=== PATIENT | female | born 1940 | race Caucasian/White ===

== ENCOUNTER → 2019-03-05 | Outpatient (CLI) | payer MEDICARE, OTHER, SELFPAY ==
[2019-03-05 12:20] LABS: Absolute Lymphocyte Count 1.18 X10^3/ul (0.83-4.51); Absolute Neutrophil Count 4.8 X10^3/uL (2.0-7.7); Basophil# 0.03 X10^3/uL; Basophil% 0.5 % (0-1); Eosinophil# 0.19 X10^3/uL; Hematocrit 35.7 % (37-47); Hemoglobin 11.7 g/dl (12.0-15.0); Lymphocyte # 1.18 X10^3/ul (4.0); Lymphocyte % 18.4 % (19-41); Mean Corp Hgb Conc 32.8 g/gl (32-36); Mean Corpuscular Hgb 27.9 pg (27.0-32.0); Mean Platelet Vol. 9.6 fl (6.2-12.0); Monocyte# 0.25 X10^3/uL; Monocyte% 3.9 % (0-10); Neutrophil # 4.77 X10^3/uL (2.7-7.7); Platelet Count 200 K/mm3 (150-450); RBC Distribution Width CV 13.7 % (11.6-14.6); RBC Distribution Width SD 42.3 fl (35.1-43.9); White Blood Count 6.4 K/mm3 (4.4-11.0)
[2019-03-05 12:21] LABS: POSITIVE COUNT NO; POSITIVE DIFFERENTIAL NO; POSITIVE MORPHOLOGY NO
[2019-03-05 12:29] LABS: ALB/GLOB Ratio 1.1 RATIO (0.9-2.4); AST(SGOT) 23 U/L (15-37); Alanine Aminotransfer ALT/SGPT 22 U/L (13-56); Albumin, Serum 4.4 g/dL (3.2-5.0); Alkaline Phosphatase 68 U/L (45-117); Anion Gap 12 (5-15); BUN 23 mg/dL (7-18); BUN/Creat Ratio 12.9 RATIO (10-20); Calcium,Total 9.2 mg/dL (8.5-10.1); Chloride 104 mmol/L (98-107); Creatinine, Serum 1.78 mg/dL (0.55-1.02); EST Glomerular Filtration Rate 29 mL/min (>60); Est Glom Filt Rate - Afr Amer 36 mL/min (>60); Globulin 3.9 g/dL (2.2-4.2); Glucose 137 mg/dL (74-106); Potassium 3.6 mmol/L (3.5-5.1); Protein, Total 8.3 g/dL (6.4-8.2); Sodium Level 142 mmol/L (136-145)
== END | disposition home or self-care (01) ==
LOC: BFHLAB 10:16
PROVIDERS: Family Provider Family Medicine; PCP Family Medicine; Visit Provider Family Medicine
DX: E11.9 Type 2 diabetes mellitus without complications (principal); E78.5 Hyperlipidemia, unspecified; I10 Essential (primary) hypertension
CPT/HCPCS: 36415; 80053; 85025

== ENCOUNTER → 2020-12-09 09:43 | Outpatient (CLI) | payer MEDICARE, OTHER, SELFPAY ==
[2020-12-09 11:37] LABS: Absolute Lymphocyte Count 1.27 X10^3/uL (0.83-4.51); Absolute Neutrophil Count 5.1 X10^3/uL (2.0-7.7); Basophil# 0.04 X10^3/uL; Basophil% 0.6 % (0-1); Eosinophils% 2.8 % (0-5); Hematocrit 37.6 % (37-47); Hemoglobin 11.9 g/dL (12.0-15.0); Lymphocyte # 1.27 X10^3/ul (4.0); Lymphocyte % 17.8 % (19-41); Mean Corp Hgb Conc 31.6 g/dL (32-36); Mean Corpuscular Hgb 29.1 pg (27.0-32.0); Mean Corpuscular Volume 91.9 fL (81-99); Mean Platelet Vol. 10.3 fl (6.2-12.0); Monocyte# 0.49 X10^3/uL; Monocyte% 6.9 % (0-10); NRBC Flagged by Analyzer 0 % (0-5); Neutrophil % 71.3 % (47-70); Platelet Count 208 K/mm3 (150-450); RBC Distribution Width CV 13.3 % (11.6-14.6); RBC Distribution Width SD 44.7 fl (35.1-43.9); Red Blood Count 4.09 M/mm3 (4.2-5.4); White Blood Count 7.1 K/mm3 (4.4-11.0)
[2020-12-09 13:03] LABS: AST(SGOT) 20 U/L (15-37); Alanine Aminotransfer ALT/SGPT 21 U/L (13-56); Albumin, Serum 4.1 g/dL (3.2-5.0); Alkaline Phosphatase 60 U/L (45-117); Anion Gap 7 (5-15); BUN 23 mg/dL (7-18); BUN/Creat Ratio 12.1 RATIO (10-20); Calcium,Total 8.7 mg/dL (8.5-10.1); Chloride 103 mmol/L (98-107); Cholesterol 106 mg/dL (200); EST Glomerular Filtration Rate 27 mL/min (>60); Est Glom Filt Rate - Afr Amer 33 mL/min (>60); Glucose 117 mg/dL (74-106); High Density Lipoprotein 49 mg/dL; Potassium 3.5 mmol/L (3.5-5.1); Protein, Total 8.1 g/dL (6.4-8.2); Sodium Level 139 mmol/L (136-145); Thyroid Stim Hormone (TSH) 2.05 uIU/mL (0.358-3.74); Triglycerides 245 mg/dL; Very Low Density Lipoprotein 49 mg/dL (5-40)
== END ==
PROVIDERS: PCP Family Medicine; Visit Provider Family Medicine
DX: E11.22 Type 2 diabetes mellitus with diabetic chronic kidney disease (principal); I12.9 Hypertensive chronic kidney disease with stage 1 through stage 4 chronic kidney disease, or unspecified chronic kidney disease; N18.9 Chronic kidney disease, unspecified; E78.5 Hyperlipidemia, unspecified
CPT/HCPCS: 36415; 80053; 80061; 84443; 85025

== ENCOUNTER 2022-03-13 11:16 | Inpatient (IN) | payer MEDICARE, OTHER, SELFPAY ==
[2022-03-13] VITALS (18 sets, daily range): BP systolic 138–192; BP diastolic 61–92; PULSE 104–124; RESP 18–36; TEMP 35.3–36.9; O2SAT 90–97; BMI 29.3; BMI 25.7
--- NOTE | 2022-03-13 11:23 | CT_ITS ---
EXAM: CT HEAD WITHOUT INTRAVENOUS CONTRAST CLINICAL INDICATION: trauma TECHNIQUE: Multiple axial images were obtained of the head without intravenous contrast. This CT exam was performed using one or more of the following dose reduction techniques: automated exposure control, adjustment of the mA and/or kV according to patient size, and/or use of iterative reconstruction technique. This report was created using [employer] report generation technology. COMPARISON: None. FINDINGS: BRAIN AND EXTRA-AXIAL SPACES: Areas of diminished white matter density noted within both cerebral hemispheres suggestive of chronic microvascular change. Prominence of the cortical sulci and ventricles consistent with volume loss change. No intra- or extra-axial hemorrhage. No evidence of acute infarct. No intracranial mass or mass effect. There is preservation of the ovalle/white matter interface. Posterior fossa structures are unremarkable. Basal cisterns are patent. BONES/JOINTS: Unremarkable. No discrete lytic or blastic abnormalities. SOFT TISSUES: Prominent right-sided scalp swelling. SINUSES: Unremarkable as visualized. Clear. MASTOID AIR CELLS: Unremarkable. Clear. ORBITS: Visualized globes, extraocular muscles, optic nerves and retrobulbar fat appear unremarkable. CT/Brain/Head without Contrast IMPRESSION: 1. No acute intracranial abnormality. 2. Chronic senescent changes. 3. Prominent right sided scalp swelling. Electronically Signed: Armond Overton MD at 12:36 EDT ,
--- NOTE | 2022-03-13 11:23 | CT_ITS ---
EXAM: CT CHEST, ABDOMEN AND PELVIS WITHOUT INTRAVENOUS CONTRAST CLINICAL INDICATION: trauma . TECHNIQUE: Helically acquired images were obtained of the chest, abdomen and pelvis without intravenous contrast. This CT exam was performed using one or more of the following dose reduction techniques: automated exposure control, adjustment of the mA and/or kV according to patient size, and/or use of iterative reconstruction technique. This report was created using [employer] report generation technology. COMPARISON: None. FINDINGS: CHEST: LUNGS AND PLEURAL SPACES: Small bilateral pleural effusions and mild bibasilar atelectasis. No mass. No pneumothorax. HEART: Heart is mildly moderately enlarged. Minimal pericardial effusion. No significant coronary artery calcifications. MEDIASTINUM: Unremarkable. No mediastinal or hilar adenopathy. Esophagus is unremarkable. No hiatal hernia. THYROID: Unremarkable. No thyroid lesions. ABDOMEN: LIVER: Unremarkable. Homogeneous. GALLBLADDER AND BILE DUCTS: Large calcified stones are present within the gallbladder. No gallbladder distention or wall edema. PANCREAS: Unremarkable. No focal cystic mass. SPLEEN: Unremarkable. Normal size without focal cystic or solid mass. ADRENALS: Unremarkable. No nodules. KIDNEYS AND URETERS: Unremarkable. Normal renal size and position. No hydronephrosis. STOMACH AND BOWEL: Diverticulosis of the colon noted without evidence of acute diverticulitis. No stomach or bowel distention. PELVIS: APPENDIX: Appendix is visualized and normal in appearance. BLADDER: Monroy catheter in place within a decompressed urinary bladder. REPRODUCTIVE: Multiple small calcified uterine fibroids. CHEST, ABDOMEN and PELVIS: INTRAPERITONEAL SPACE: No evidence of hemoperitoneum. No free air. BONES/JOINTS: Unremarkable. No suspicious lytic or blastic abnormality. SOFT TISSUES: Unremarkable. No discrete abdominal or pelvic wall hernia. VASCULATURE: Unremarkable. Aorta is non-dilated. LYMPH NODES: Unremarkable. No enlarged lymph nodes. CT/CT Chest, Abd, Pelvis WO Cont IMPRESSION: 1. No evidence of acute intrathoracic or intra-abdominal injury. 2. Cardiomegaly. 3. Small bilateral pleural effusions and mild bibasilar atelectasis. 4. Cholelithiasis. 5. Diverticulosis coli. Electronically Signed: Armond Overton MD at 12:45 EDT Reading Location ID and State: [facility] / [place] Tel , Service support ,
--- NOTE | 2022-03-13 11:23 | CT_ITS ---
EXAM: CT CERVICAL SPINE WITHOUT INTRAVENOUS CONTRAST CLINICAL INDICATION: trauma TECHNIQUE: Helically acquired images were obtained of the cervical spine without intravenous contrast. 2D reformatted images were reviewed. This CT exam was performed using one or more of the following dose reduction techniques: automated exposure control, adjustment of the mA and/or kV according to patient size, and/or use of iterative reconstruction technique. This report was created using [employer] report generation technology. COMPARISON: None. FINDINGS: VERTEBRAE: Moderate diffuse spondylosis. No fracture. No traumatic subluxation. No discrete lytic or blastic abnormality. Normal alignment. Normal craniocervical junction and cervicothoracic junction. DISCS/SPINAL CANAL/NEURAL FORAMINA: Broad-based disc protrusion at C5-6 level without significant narrowing of the spinal canal. SOFT TISSUES: Unremarkable. No prevertebral soft tissue swelling. LYMPH NODES: Unremarkable. No cervical adenopathy. LUNG APICES: Unremarkable as visualized. Clear. CT/Spine Cervical without Contras IMPRESSION: 1. No acute abnormality. 2. Diffuse spondylosis. Electronically Signed: Armond Overton MD at 12:47 EDT ,
--- NOTE | 2022-03-13 11:24 | EKG12_ITS ---
Test Reason : TRAUMA\FALL Blood Pressure : / mmHG Vent. Rate : 117 BPM Atrial Rate : 117 BPM P-R Int : 190 ms QRS Dur : 086 ms QT Int : 314 ms P-R-T Axes : 044 -15 106 degrees QTc Int : 438 ms Sinus tachycardia with occasional Premature ventricular complexes T wave abnormality, consider lateral ischemia Abnormal ECG Confirmed by RC NELSON, JOEY ([id number]), photographic editor DAVE KENNEDY ([id number]) on 03/14/2022 1:17:19 PM Referred By: MOO Confirmed By:JOEY TATUM MD
--- NOTE | 2022-03-13 11:29 | EDS_ITS ---
HPI HPI - Fall History of Present Illness Chief Complaint: Trauma Detail of Chief Complaint: Fell down a flight of steps. Informant: patient, family and EMS Occured/Mechanism Occurred: Days Fall from Height (ft): Fell down 1 flight of steps Usually ambulates: Without assistance Pain/Injury Pain Location: head, chest, abdomen, pelvis and back Quality of Pain: Sharp Current Severity: Moderate Maximum Severity: Moderate Associated Symptoms Associated Symptoms: Positive for Inability to ambulate; Negative for Parasthesias, Weakness, Loss of consciousness and Amnesia Narrative Narrative: 81-year-old female history of a prior stroke on Plavix with right- sided weakness. Also history of renal insufficiency and [id number] diabetes. Son says he was at her house around 5:00 on Monday she was doing well. Sometime Monday evening she lost her balance and fell backwards down steps into her basement and got wedged into an area of the door. She has been laying there now the last 2 days. Neighbors had not seen her found her and called paramedics could break the door in order to get her out. Prior similar symptoms: No Recent Illness/Hospitalization: No PFSH PFSH Home Medications atorvastatin 20 mg PO QHS 03/13/22 [History Last Taken Unknown] clopidogrel 75 mg PO DAILY 03/13/22 [History Last Taken Unknown] diazepam 5 mg PO TID 03/13/22 [History Last Taken Unknown] metformin 500 mg PO DAILY 03/13/22 [History Last Taken Unknown] metoprolol succinate 100 mg PO BID 03/13/22 [History Last Taken Unknown] nifedipine 60 mg PO DAILY 03/13/22 [History Last Taken Unknown] Allergy/AdvReac Type Severity Reaction Status Date / Time Penicillins AdvReac PT UNSURE Verified 03/13/22 11:42 OF REACTION Social History Smoking Status: Former smoker ROS ROS ED ROS Narrative Denies recent illness. Review of Systems ROS Unobtainable: Denies due to encephalopathy Constitutional Constitutional ED: Denies fever(s) Eyes Eyes: Denies change in vision ENT ENT ED: Denies ear pain Cardiovascular Cardiovascular: Denies chest pain Respiratory/Chest Respiratory/Chest: Denies cough or dyspnea Gastrointestinal Gastrointestinal: Denies abdominal pain, diarrhea, nausea or vomiting Genitourinary Genitourinary ED: Denies dysuria Musculoskeletal Musculoskeletal: Denies myalgias Integumentary Denies rash Neurologic Neurologic: Denies headache(s) Psychiatric Psychiatric: Denies depression Endocrine Endocrinology: Denies polyuria Hematologic/Lymphatic Hematologic/Lymphatic: Denies easy bruising Allergic/Immunologic Allergic/Immunologic ED: Denies urticaria EXAM Physical Exam Narrative Exam Narrative: Elderly female brought in by paramedics backboard and c-collar. Her initial blood pressure is 171/87. Temperature on the forehead is 96.3. Pulse ox is 97% on 2 L no hypoxia. H EENT exam pupils round reactive light. Dentition intact. No facial tenderness. Scalp no areas of tenderness or lacerations. C-collar in place. Trachea midline. Lungs shallow breath sounds bilaterally. Reproducible pain over the chest wall. Heart tachycardic rate about 120 no murmur. Abdomen soft nontender. Pelvic girdle intact. She has abrasions and bruises over multiple areas of her extremities. Including her right shoulder. Neurologically she is awake. She does answer questions. She follows limited commands. She is weaker on the right side than the left she states that is from a prior stroke. Const Vital Signs: 03/13/22 11:17 03/13/22 11:22 03/13/22 11:37 Temperature 96.3 F L 96.3 F L Temperature Source Temporal Temporal Pulse Rate 119 H 116 H Respiratory Rate 23 H 29 H Respiratory Effort Respiratory Depth Respiratory Pattern Blood Pressure 171/87 H 171/87 H Blood Pressure Mean 115 115 Pulse Ox 97 97 Oxygen Delivery Method Nasal Cannula Nasal Cannula Nasal Cannula Oxygen Flow Rate (L/min) 2 4 03/13/22 11:43 03/13/22 12:00 03/13/22 12:30 Temperature 95.5 F L 98.1 F 98.1 F Temperature Source Core Core Pulse Rate 104 H 106 H Respiratory Rate 21 H 21 H Respiratory Effort Normal Non-Labored Respiratory Depth Normal Respiratory Pattern Normal Blood Pressure 161/74 H 165/74 H Blood Pressure Mean 103 104 Pulse Ox 93 95 95 Oxygen Delivery Method Nasal Cannula Nasal Cannula Nasal Cannula Oxygen Flow Rate (L/min) 4 4 4 Positive well nourished and well developed; Negative for cachectic, contractures or unkempt General Appearance ED: well developed; Negative for unkempt, cachectic, contractures or NAD Nutritional Appearance: Negative for cachectic HEENT Reports normocephalic Eyes PERRL and EOMs intact bilaterally Neck No full ROM, no lymphadenopathy and supple General: Negative for tenderness Chest Wall Negative for inspection of chest normal or palpation of chest normal Chest Narrative: Tenderness of the chest wall more so on the right ribs. Resp normal respiratory effort, no retractions and clear to auscultation bilaterally Resp Narrative: Shallow breathing. Auscultation: Negative for rales, rhonchi or wheezes Cardio regular rhythm, S1 normal heart sound, S2 normal heart sound and no murmurs; Negative for regular rate Rate: tachycardic GI non-tender, non-distended and no masses Auscultation: normoactive bowel sounds Palpation: soft; Negative for guarding Extremity Negative for normal to inspection or full ROM Extremity Narrative: Tenderness and bruising right shoulder. Limited range of motion both upper and lower extremities. Multiple abrasions and contusions. Neuro Courtney Coma Scale: document GCS findings To Voice Obeys Commands Confused 13 Sensorium / Orientation: alert, oriented to person and oriented to place Motor Exam: Negative for strength 5/5 throughout Psych mental status grossly normal and thought process normal Appearance: Negative for unkempt Skin Lesions: no lesions and No lesion noted Rashes: no rashes and No rashes noted Trauma: abrasion MDM MDM MDM Narrative Medical decision making narrative: 81-year-old female on Plavix reportedly fell backwards down a flight of steps at her home on Monday night and is laid there now for the last 2 days. She was found today by a neighbor and brought in by paramedics. Backboard and c-collar. CAT scan of her head neck chest abdomen pelvis to be obtained. I am obtaining a chest x-ray initially to see if she has a pneumothorax. She be given a liter of fluid and 2 IVs to be placed. Along with a Monroy catheter. Numerous labs will be obtained. She will be treated with fentanyl and Zofran. Multiple repeat exams patient is doing well. She was initially treated with fentanyl and Zofran. Said her pain is under control. Back exam she has abrasion and contusion to her posterior right shoulder and right buttock area. She can move her extremities. She has no deformities. Amazingly her CAT scan and plain films do not show any broken bones. I am going to speak to the hospitalist about admission for rhabdomyolysis, dehydration, acute kidney injury. Lab Data Attestation: I reviewed the patient's lab results. Lab results narrative: CBC shows an elevated white count of 27.7. H&H 15 and 44. Platelets 320. 90% segmented neutrophils. Electrolytes show a sodium 134 and a gap of 13 BUN of 49 and creatinine 2.84 consistent with acute kidney injury. Glucose 249. Liver enzymes are unremarkable. Her CPK is elevated 2463 consistent with rhabdomyolysis. Lipase is normal at 72. UA negative. 5-10 white cells will be sent for culture. PT, INR and PTT are unremarkable. Labs: Laboratory Results - last 24 hr 03/13/22 03/13/22 03/13/22 11:25 11:25 11:38 WBC 27.7 H RBC 5.03 Hgb 15.4 H Hct 44.5 MCV 88.5 MCH 30.6 MCHC 34.6 RDW Std Deviation 43.2 RDW Coeff of Sarath 13.3 Plt Count 320 MPV 10.5 Immature Gran % (Auto) 0.800 Neut % (Auto) 90.0 H Lymph % (Auto) 3.0 L Marinette % (Auto) 6.0 Eos % (Auto) 0.0 Baso % (Auto) 0.2 Absolute Neuts (auto) 25.0 H Absolute Lymphs (auto) 0.82 L Nucleated RBC % 0 Differential Comment SCANNED Diff Path Review May foll PT INR APTT Sodium 134 L Potassium 3.6 Chloride 103 Carbon Dioxide 18.0 L Anion Gap 13 BUN 49 H Creatinine 2.84 H Estim Creat Clear Calc 13.07 Est GFR (MDRD) Af Amer 21 L Est GFR (MDRD) Non-Af 17 L BUN/Creatinine Ratio 17.3 Glucose 249 H Calcium 9.0 Total Bilirubin 0.40 AST 112 H ALT 47 Alkaline Phosphatase 86 Total Creatine Kinase 2463 H Troponin I High Sens 111 H Total Protein 8.0 Albumin 3.4 Globulin 4.6 H Albumin/Globulin Ratio 0.7 L Lipase 72 L Urine Color Urine Clarity Urine pH Ur Specific [place] Urine Protein Urine Glucose (UA) Urine Ketones Urine Occult Blood Urine Nitrite Urine Bilirubin Urine Urobilinogen Ur Leukocyte Esterase Urine RBC Urine WBC Ur Squamous Epith Cells Urine Bacteria Hyaline Casts Fine Granular Casts Urine Mucus POC Glucose 266 H 03/13/22 03/13/22 11:42 12:45 WBC RBC Hgb Hct MCV MCH MCHC RDW Std Deviation RDW Coeff of Sarath Plt Count MPV Immature Gran % (Auto) Neut % (Auto) Lymph % (Auto) Marinette % (Auto) Eos % (Auto) Baso % (Auto) Absolute Neuts (auto) Absolute Lymphs (auto) Nucleated RBC % Differential Comment Diff Path Review PT 17.7 H INR 1.5 APTT 35.1 Sodium Potassium Chloride Carbon Dioxide Anion Gap BUN Creatinine Estim Creat Clear Calc Est GFR (MDRD) Af Amer Est GFR (MDRD) Non-Af BUN/Creatinine Ratio Glucose Calcium Total Bilirubin AST ALT Alkaline Phosphatase Total Creatine Kinase Troponin I High Sens Total Protein Albumin Globulin Albumin/Globulin Ratio Lipase Urine Color Yellow Urine Clarity Sl. Cloudy Urine pH 6.0 Ur Specific [place] 1.015 Urine Protein 500 H Urine Glucose (UA) 50 H Urine Ketones 5 H Urine Occult Blood 250 H Urine Nitrite Negative Urine Bilirubin Negative Urine Urobilinogen Normal Ur Leukocyte Esterase 25 H Urine RBC 0 SEEN Urine WBC 5-10 SEEN Ur Squamous Epith Cells 0 SEEN Urine Bacteria 1+ Hyaline Casts 0-5 SEEN Fine Granular Casts 0-5 SEEN Urine Mucus 0 SEEN POC Glucose Radiography Diagnostic Testing: Clinical Impression(s) from Imaging Studies Brain CT 03/13/22 11:23 IMPRESSION: 1. No acute intracranial abnormality. 2. Chronic senescent changes. 3. Prominent right sided scalp swelling. Electronically Signed: Armond Overton MD at 12:36 EDT , Cervical Spine CT 03/13/22 11:23 IMPRESSION: 1. No acute abnormality. 2. Diffuse spondylosis. Electronically Signed: Armond Overton MD at 12:47 EDT , Chest/Abdomen/Pelvis CT 03/13/22 11:23 IMPRESSION: 1. No evidence of acute intrathoracic or intra-abdominal injury. 2. Cardiomegaly. 3. Small bilateral pleural effusions and mild bibasilar atelectasis. 4. Cholelithiasis. 5. Diverticulosis coli. Electronically Signed: Armond Overton MD at 12:45 EDT , Chest X-Ray 03/13/22 11:33 IMPRESSION: No acute cardiopulmonary abnormality. Electronically Signed: Armond Overton MD at 11:58 EDT , Pelvis X-Ray 03/13/22 11:33 IMPRESSION: No acute abnormality. Electronically Signed: Armond Overton MD at 11:57 EDT , Pelvis x-ray single view interpreted myself and radiologist shows no acute fracture. Chronic changes. Chest x-ray single view, portable, interpreted by myself and radiologist shows no acute abnormality. Chronic changes. CAT scans of the head, neck, chest abdomen and pelvis showed chronic changes no acute abnormality. Read by the radiologist and reviewed by me. Rhythm Strip Rhythm Strip: Sinus Tach Rate: 117 Ectopy: PVC(s) EKG Initial EKG: Attestation: I personally reviewed and interpreted this EKG as follows: Interpretation: No Acute Injury Pattern and Sinus Tachycardia Comments: Sinus tachycardia rate Lycelle pain. HPI menses. There is ST depression in the lateral leads to the 6. Critical Care Time Critical Care Time: Yes Critical care time (excluding procedures): 30-74 minutes, Including time spent:, Discussing w/Patient &/or Family/Home Improvement Installer, Discussing w/Consultants, Arranging Admission or Transfer, Performing Direct Patient Care at Bedside and - (33 min.) Discharge Plan Triage Chief Complaint: Trauma ED Provider: Phil Mora Dx/Rx/DC Orders Clinical Impression: Fall down steps, Rhabdomyolysis, Acute kidney injury, Unable to ambulate, Contusion, Pressure ulcer Prescriptions: No Action metformin 500 mg tablet 500 mg PO DAILY RF: 0 atorvastatin 20 mg tablet 20 mg PO QHS RF: 0 metoprolol succinate 100 mg tablet extended release 24 hr 100 mg PO BID RF: 0 clopidogrel 75 mg tablet 75 mg PO DAILY RF: 0 nifedipine 60 mg tablet extended release 24hr 60 mg PO DAILY RF: 0 diazepam 5 mg tablet 5 mg PO TID RF: 0 Primary Care Provider: Domo Causey Referrals: Domo Causey MD [Primary Care Provider] -
[2022-03-13] MEDS: fentaNYL 100 MCG/2 ML Ampul 50 MCG IV (11:33)
[2022-03-13] MEDS: Ondansetron 4 MG/2 ML Vial IV (11:33)
--- NOTE | 2022-03-13 11:33 | RAD_ITS ---
EXAM: XR PELVIS, 1 OR 2 VIEWS CLINICAL INDICATION: trauma TECHNIQUE: Frontal view of the pelvis. This report was created using [employer] report generation technology. COMPARISON: None. FINDINGS: BONES/JOINTS: Unremarkable. No displaced fracture. No destructive or sclerotic lesions. Sacroiliac joints are unremarkable. No widening of the pubic symphysis. The articular structures are unremarkable. SOFT TISSUES: Unremarkable. No soft tissue swelling or gas. RAD/Pelvis 1 or 2 Views IMPRESSION: No acute abnormality. Electronically Signed: Armond Overton MD at 11:57 EDT ,
--- NOTE | 2022-03-13 11:33 | RAD_ITS ---
EXAM: XR CHEST, 1 VIEW CLINICAL INDICATION: trauma TECHNIQUE: Frontal view of the chest. This report was created using [employer] report generation technology. COMPARISON: None. FINDINGS: LUNGS AND PLEURAL SPACES: Unremarkable. No consolidation or edema. No pneumothorax. No effusion. HEART: Unremarkable. Cardiac silhouette not enlarged. MEDIASTINUM: Central airways and mediastinal contour are unremarkable. BONES/JOINTS: Unremarkable. SOFT TISSUES: Unremarkable. RAD/Chest 1 View (Portable) IMPRESSION: No acute cardiopulmonary abnormality. Electronically Signed: Armond Overton MD at 11:58 EDT ,
[2022-03-13] MEDS: 0.9% Normal Saline 1,000 ML 1000 ML IV (11:36)
[2022-03-13 11:40] LABS: Absolute Lymphocyte Count 0.82 X10^3/uL (0.83-4.51); Basophil# 0.06 X10^3/uL; Basophil% 0.2 % (0-1); Hematocrit 44.5 % (37-47); Hemoglobin 15.4 g/dL (12.0-15.0); Lymphocyte # 0.82 X10^3/ul (0.83-4.51); Mean Corp Hgb Conc 34.6 g/dL (32-36); Mean Corpuscular Hgb 30.6 pg (27.0-32.0); Mean Corpuscular Volume 88.5 fL (81-99); Mean Platelet Vol. 10.5 fl (6.2-12.0); Monocyte# 1.66 X10^3/uL; NRBC Flagged by Analyzer 0 % (0-5); Neutrophil # 24.95 X10^3/uL (2.7-7.7); POSITIVE DIFFERENTIAL YES; Platelet Count 320 K/mm3 (150-450); RBC Distribution Width CV 13.3 % (11.6-14.6); RBC Distribution Width SD 43.2 fl (35.1-43.9); Red Blood Count 5.03 M/mm3 (4.2-5.4); White Blood Count 27.7 K/mm3 (4.4-11.0)
--- NOTE | 2022-03-13 11:45 | NURSING ---
Pt complains of all over pain, temporal temp 96.3, core body temperature via barrera on arrival 95.5, patient bedding changed as patient had saturated self with urine. Warm blankets applied, core temperature elevates to 98.1 Trauma assessment notes the following: Scalp swelling and pressure sore noted to right sided parietal region, abrasion to right posterior shoulder blade region, stage 3 pressure ulcer to coccyx, r lateral ankle abrasion, skin tear and bruising to right hand.
[2022-03-13 11:47] LABS: Differential Indicated SCAN CRITERIA MET
[2022-03-13 11:49] LABS: Red Blood Cells-Urine 0 SEEN /hpf (0-5)
[2022-03-13 11:50] LABS: Mucous, Urine 0 SEEN /hpf (<or=2+); Squamous Epithelial Cells - UA 0 SEEN /hpf (5-10)
[2022-03-13 11:51] LABS: Color, Urine Yellow (Yellow); Glucose, Dipstick 50 mg/dl (Normal); Ketone-Dipstick 5 mg/dl (Negative); Leukocyte Esterase-Dipstick 25 /ul (Negative); Nitrite-Dipstick Negative (Negative); Occult Blood-Urine 250 /ul (Negative); Protein-Dipstick 500 mg/dl (Negative); Specific Gravity, Urine 1.015 (1.002-1.030); Urine Bilirubin Dipstick Negative (Negative); Urine Clarity Sl. Cloudy (Clear); Urine Urobilinogen Normal (Normal)
[2022-03-13 12:03] LABS: Bacteria 1+ /hpf (None Seen); Hyaline Cast 0-5 SEEN /lpf (0-5); White Blood Cells 5-10 SEEN /hpf (0-5)
[2022-03-13 12:04] LABS: Fine Granular Cast- Urine 0-5 SEEN /lpf (0-5)
[2022-03-13 12:18] LABS: Differential Comment SCANNED
[2022-03-13 12:31] LABS: ALB/GLOB Ratio 0.7 RATIO (0.9-2.4); AST(SGOT) 112 U/L (15-37); Alanine Aminotransfer ALT/SGPT 47 U/L (13-56); Albumin, Serum 3.4 g/dL (3.2-5.0); Alkaline Phosphatase 86 U/L (45-117); Anion Gap 13 (5-15); BUN 49 mg/dL (7-18); BUN/Creat Ratio 17.3 RATIO (10-20); CPK Total, Creatine Kinase 2463 U/L (26-192); Chloride 103 mmol/L (98-107); Creatinine, Serum 2.84 mg/dL (0.55-1.02); EST Glomerular Filtration Rate 17 mL/min (>60); Est Glom Filt Rate - Afr Amer 21 mL/min (>60); Estimated Creatinine Clearance 13.07 ml/min; Globulin 4.6 g/dL (2.2-4.2); Glucose 249 mg/dL (74-106); Lipase 72 U/L (73-393); Potassium 3.6 mmol/L (3.5-5.1); Sodium Level 134 mmol/L (136-145); Troponin-I HS 111 pg/mL (3.0-54.0)
[2022-03-13 13:03] LABS: International Normalized Ratio 1.5; Prothrombin Time (Protime)PT. 17.7 SECONDS (11.7-14.9)
[2022-03-13 13:04] LABS: Partial Thromboplast Time 35.1 Seconds (24.1-36.2)
[2022-03-13 13:06] LABS: Bedside Glucose 266 mg/dL (74-106)
--- NOTE | 2022-03-13 13:42 | HP.PCM.HOS_ITS ---
HPI - General HPI Narrative ELIZA LUNA, is a 81 F who presents after being found down a flight of stairs. Patient had fallen this past Monday but has not been seen since then. Patient was then found at the bottom of her stairs. Patient had fallen down her stairs but did not know the details of the fall and injury but was unable to get herself up. She was brought into the emergency room where she went extensive imaging including x-rays of her pelvis, chest which were unremarkable, CAT scan imaging of her chest abdomen pelvis, head CT and cervical spine CT which were also unremarkable. Patient was found to have rhabdomyolysis with total creatinine kinase of 2463. Patient did receive IV fluids in the emergency room. The hospital service was contacted for admission regards to medical treatment. [facility] Medical History (Updated 03/13/22 @ 13:[address] Supa White DO) Benign hypertension history of ischemic stroke Hyperlipidemia Obesity Type 2 diabetes mellitus Home Medications atorvastatin 20 mg PO QHS 03/13/22 [History Last Taken Unknown] clopidogrel 75 mg PO DAILY 03/13/22 [History Last Taken Unknown] diazepam 5 mg PO TID 03/13/22 [History Last Taken Unknown] metformin 500 mg PO DAILY 03/13/22 [History Last Taken Unknown] metoprolol succinate 100 mg PO BID 03/13/22 [History Last Taken Unknown] nifedipine 60 mg PO DAILY 03/13/22 [History Last Taken Unknown] Allergy/AdvReac Type Severity Reaction Status Date / Time Penicillins AdvReac PT UNSURE Verified 03/13/22 11:42 OF REACTION Social History Smoking Status: Former smoker ROS ROS Narrative Hurts all over. All review of systems were negative except as mentioned above in the history of present illness and the other review of systems. Vital Signs Vital Signs Vital Signs: 03/13/22 11:17 03/13/22 11:22 03/13/22 11:37 Temperature 35.7 C L 35.7 C L Temperature Source Temporal Temporal Pulse Rate 119 H 116 H Respiratory Rate 23 H 29 H Respiratory Effort Respiratory Depth Respiratory Pattern Blood Pressure 171/87 H 171/87 H Blood Pressure Mean 115 115 Pulse Ox 97 97 Oxygen Delivery Method Nasal Cannula Nasal Cannula Nasal Cannula Oxygen Flow Rate (L/min) 2 4 03/13/22 11:43 03/13/22 12:00 03/13/22 12:30 Temperature 35.3 C L 36.7 C 36.7 C Temperature Source Core Core Pulse Rate 104 H 106 H Respiratory Rate 21 H 21 H Respiratory Effort Normal Non-Labored Respiratory Depth Normal Respiratory Pattern Normal Blood Pressure 161/74 H 165/74 H Blood Pressure Mean 103 104 Pulse Ox 93 95 95 Oxygen Delivery Method Nasal Cannula Nasal Cannula Nasal Cannula Oxygen Flow Rate (L/min) 4 4 4 03/13/22 13:00 03/13/22 13:29 Temperature 36.7 C 36.7 C Temperature Source Core Core Pulse Rate 107 H 111 H Respiratory Rate 36 H 30 H Respiratory Effort Respiratory Depth Respiratory Pattern Blood Pressure 190/86 H 188/80 H Blood Pressure Mean 120 116 Pulse Ox 96 96 Oxygen Delivery Method Nasal Cannula Nasal Cannula Oxygen Flow Rate (L/min) 4 4 Weight Weight: 75.1 kg Body Mass Index (BMI) 29.3 Physical Exam Const alert, no apparent distress and average body habitus General Appearance: cooperative HEENT normocephalic, hearing grossly normal bilaterally and moist oral mucous membranes HEENT Narrative: Bruising on her scalp. Mucous membranes dry. Eyes PERRL Resp normal respiratory effort, no retractions, no use of accessory muscles and clear to auscultation bilaterally Cardio regular rate, regular rhythm, S1 normal heart sound and S2 normal heart sound GI normal to inspection, nondistended, normoactive bowel sounds, soft to palpation, non-tender and non-distended Extremity full ROM Extremity Narrative: Bruising and ecchymosis on right anterior shoulder Skin Skin Narrative: Skin abrasion on right anterior shoulder as well as on the shins. Neuro moves all extremities Sensorium / Orientation: awake and alert Psych Psych Narrative: Flat affect Results Lab / Micro Data Attestation: I reviewed the patient's lab results. Result Diagrams: 03/13/22 11:25 03/13/22 11:25 Labs: Laboratory Results - last 24 hr 03/13/22 11:25: WBC 27.7 H, RBC 5.03, Hgb 15.4 H, Hct 44.5, MCV 88.5, MCH 30.6, MCHC 34.6, RDW Std Deviation 43.2, RDW Coeff of Sarath 13.3, Plt Count 320, MPV 10.5, Immature Gran % (Auto) 0.800, Neut % (Auto) 90.0 H, Lymph % (Auto) 3.0 L, [place] % (Auto) 6.0, Eos % (Auto) 0.0, Baso % (Auto) 0.2, Absolute Neuts (auto) 2 5.0 H, Absolute Lymphs (auto) 0.82 L, Nucleated RBC % 0, Differential Comment SCANNED, Diff Path Review March foll 03/13/22 11:25: Sodium 134 L, Potassium 3.6, Chloride 103, Carbon Dioxide 18.0 L , Anion Gap 13, BUN 49 H, Creatinine 2.84 H, Estim Creat Clear Calc 13.07, Est GFR (MDRD) Af Amer 21 L, Est GFR (MDRD) Non-Af 17 L, BUN/Creatinine Ratio 17.3, Glucose 249 H, Calcium 9.0, Total Bilirubin 0.40, AST 112 H, ALT 47, Alkaline Phosphatase 86, Total Creatine Kinase 2463 H, Troponin I High Sens 111 H, Total Protein 8.0, Albumin 3.4, Globulin 4.6 H, Albumin/Globulin Ratio 0.7 L, Lipase 72 L 03/13/22 11:38: POC Glucose 266 H 03/13/22 11:42: Urine Color Yellow, Urine Clarity Sl. Cloudy, Urine pH 6.0, Ur Specific [place] 1.015, Urine Protein 500 H, Urine Glucose (UA) 50 H, Urine Ketones 5 H, Urine Occult Blood 250 H, Urine Nitrite Negative, Urine Bilirubin Negative, Urine Urobilinogen Normal, Ur Leukocyte Esterase 25 H, Urine RBC 0 SEEN, Urine WBC 5-10 SEEN, Ur Squamous Epith Cells 0 SEEN, Urine Bacteria 1+, Hyaline Casts 0-5 SEEN, Fine Granular Casts 0-5 SEEN, Urine Mucus 0 SEEN 03/13/22 12:45: PT 17.7 H, INR 1.5, APTT 35.1 Rhythm Strip Rhythm Strip: Sinus Tach Rate: 117 Ectopy: PVC(s) EKG Initial EKG: Attestation: I personally reviewed and interpreted this EKG as follows: Prior EKG tracings: available for review EKG Rhythm Intrepretation: Sinus Rhythm Radiology Impression Brain CT 03/13/22 11:23 IMPRESSION: 1. No acute intracranial abnormality. 2. Chronic senescent changes. 3. Prominent right sided scalp swelling. Electronically Signed: Armond Overton MD at 12:36 EDT , Cervical Spine CT 03/13/22 11:23 IMPRESSION: 1. No acute abnormality. 2. Diffuse spondylosis. Electronically Signed: Armond Overton MD at 12:47 EDT , Chest/Abdomen/Pelvis CT 03/13/22 11:23 IMPRESSION: 1. No evidence of acute intrathoracic or intra-abdominal injury. 2. Cardiomegaly. 3. Small bilateral pleural effusions and mild bibasilar atelectasis. 4. Cholelithiasis. 5. Diverticulosis coli. Electronically Signed: Armond Overton MD at 12:45 EDT Reading Location ID and State: [id number] Tel , Service support , Chest X-Ray 03/13/22 11:33 IMPRESSION: No acute cardiopulmonary abnormality. Electronically Signed: Armond Overton MD at 11:58 EDT , Pelvis X-Ray 03/13/22 11:33 IMPRESSION: No acute abnormality. Electronically Signed: Armond Overton MD at 11:57 EDT , Assessment & Plan Assessment/Plan (1) Rhabdomyolysis: QUALIFIERS: Rhabdomyolysis type: traumatic Encounter type: initial encounter Qualified Code(s): T79.6XXA - Traumatic ischemia of muscle, initial encounter (2) Acute kidney injury: (3) Debility: PLAN: 1. Rhabdomyolysis * Traumatic * CPK was noted to be 2463 * Continue with IV fluids * Check CPK in the morning 2. Acute kidney injury * Baseline around 1.9, today it is 2.8 * IV fluids and monitor 3. Debility * PT OT evaluate and treat * Anticipate patient will require [facility]p facility upon discharge 4. Diabetes mellitus type 2 * Hold metformin * Sliding scale insulin 5. VTE prophylaxis with SCDs. Given the patient's scalp hematomas would hold off on her clopidogrel for now. 6. History of stroke * On clopidogrel at baseline. Currently being held because of her scalp hematomas. As those resolved and clopidogrel could be resumed. 7. CODE STATUS: Addressed with the patient. Patient wishes to be DNR Comfort Care arrest no intubation 8. COVID-19 vaccination status: Patient is unvaccinated. She has not not received the booster. Advised patient get vaccinated and that she could be administered the first of the second dose of the monthly regimen. 9. Chronic benzodiazepine use * Reviewed OARRS. Patient received diazepam 5 mg 3 times daily, last dosing was on the where he received 90 at that time. * Given the patient's advanced age and frailty, I recommend weaning that off. Would start her on diazepam 5 mg twice daily for now but that could be further weaned down as she is able to tolerate. Charges/Coding Visit Charges Inpatient E&M: 64097 Init Hosp L3
--- NOTE | 2022-03-13 14:25 | NURSING ---
Patient noted to have oxygen desaturation to 84% on 2lpm, increased oxygen back to 4lpm and rebounded to 97%. Awakens easily.
[2022-03-13] MEDS: Metoprolol(XL)Succ 100 MG Tablet PO ×2 (15:48→21:43)
[2022-03-13] MEDS: NIFEdipine 60 MG Tablet PO (15:49)
[2022-03-13] MEDS: 0.9% Normal Saline 1,000 ML 150 ML IV ×2 (15:52→20:00)
[2022-03-13 16:16] LABS: Bedside Glucose 233 mg/dL (74-106)
[2022-03-13] MEDS: Insulin Lispro 100 UNIT/ML INSULN.PEN SC (16:23)
[2022-03-13] MEDS: diazePAM 5 MG Tablet PO (21:43)
[2022-03-14] MEDS: 0.9% Normal Saline 1,000 ML 150 ML IV (02:45)
--- NOTE | 2022-03-14 02:59 | NURSING ---
Pt pulseless, apneic, no pupil response. Verified with Shanelle FORRESTER.
--- NOTE | 2022-03-14 03:09 | EXP.PCM_ITS ---
Preliminary Cause of Preliminary Cause of Preliminary Cause of : Acute myocardial infarction Principle Diagnosis Problem List: Active Debility (Acute) Fall down steps (Acute) Rhabdomyolysis (Acute) Acute kidney injury (Acute) Unable to ambulate (Acute) Contusion (Acute) Pressure ulcer (Acute) Hospital Course Hospital course: ELIZA LUNA, is a 81 F with a significant history of CVA who presents after being found down a flight of stairs. Patient was found at the bottom of his days after falling. Had fallen this past Monday but has not been seen since then. Patient was then found at the bottom of her stairs. She was brought into the emergency room where she went extensive imaging including x-rays of her pelvis, chest which were unremarkable, CAT scan imaging of her chest abdomen pelvis, head CT and cervical spine CT which were also unremarkable. Patient was found to have rhabdomyolysis with total creatinine kinase of 2463. Patient did receive IV fluids in the emergency room. The hospital service was contacted for admission regards to medical treatment. 1. Rhabdomyolysis Traumatic CPK was noted to be 2463. Patient received IV fluids. 2. Acute kidney injury on CKD stage IIIb Baseline around 1.9. On presentation her creatinine was 2.8. Patient was given IV fluids. An order was made to trend BMP. However patient passed before the next BMP could be obtained. 3. Debility PT and OT consults were placed to evaluate and treat patient with anticipation the patient will go to a assisted facility upon discharge however patient passed before PT and OT could see him. PT and OT to evaluate and treat Anticipate patient will require assisted facility upon discharge 4. Diabetes mellitus type 2 At home metformin was held. Accu-Chek with correction scale insulin was ordered. 5. VTE prophylaxis with SCDs. Because of scalp hematomas of the head clopidogrel was held. 6. History of stroke Patient was on baseline clopidogrel. However because of scalp hematoma her clopidogrel was held with plan that it be resumed when patient was stable. 7. Chronic benzodiazepine use An attempt was made to begin weaning patient of at home diazepam Reportedly patient began to have bradycardia with heart rate in the 20s; and she was having agonal breathing. Patient had a code status of DO NOT RESUSCITATE w ith no intubation. On 03/14/2022 at 0259 patient's . Her was confirmed by 2 registered nurses . Due to a history of a stroke suspect that her cause of was secondary to myocardial infection. Date of : 03/14/2022. Time of 0-59 Immediate cause of (final disease of condition resulting in ): Myocardial infarction. Duration: Days/month/years: Hours Listed conditions leading to cause of (due to or as a consequence of): Coronary artery disease Day/month/years: Yes Listed other significant conditions contributing to but not resulting in the underlying cause of : Chronic kidney disease; diabetes mellitus. Did tobacco contribute to : Yes. Patient is a former smoker. Visit Charges Inpatient E&M: 69515 Disch Hosp
--- NOTE | 2022-03-14 03:10 | NURSING ---
school bus monitor started alarming bradycardia at 0249hrs. This nurse went into pt's room and pt agonal breathing. [employer] present on unit at this time. Paged the hospitalist. Asystole on monitor at 0255hrs. Last breath noted at this time. Hospitalist aware. [employer] and this nurse confirmed No Apical pulse, no respirations with fixed and dilated pupils. pronounced time of at 0259hrs.
--- NOTE | 2022-03-14 03:46 | NURSING ---
Pt received approximately 150ml of normal saline in the last hour.
--- NOTE | 2022-03-14 03:50 | NURSING ---
Addendum entered by Katie Haq 03/14/22 04:43: lines left in d/t coroners case Original Note: PIV x2 left in pt along with barrera cath
[2022-03-16 12:51] LABS: Pathologist Review Reviewed
== END 2022-03-14 04:27 | DRG 564 ==
LOC: ED 13:29 → MS3 13:57
PROVIDERS: Emergency Provider Emergency Medicine; PCP Family Medicine
DX: T79.6XXA Traumatic ischemia of muscle, initial encounter (principal); I21.4 Non-ST elevation (NSTEMI) myocardial infarction; N17.9 Acute kidney failure, unspecified; L89.90 Pressure ulcer of unspecified site, unspecified stage; E11.22 Type 2 diabetes mellitus with diabetic chronic kidney disease; N18.32 Chronic kidney disease, stage 3b; S40.211A Abrasion of right shoulder, initial encounter; S30.0XXA Contusion of lower back and pelvis, initial encounter; S30.810A Abrasion of lower back and pelvis, initial encounter; S40.011A Contusion of right shoulder, initial encounter; W10.9XXA Fall (on) (from) unspecified stairs and steps, initial encounter; E86.0 Dehydration; I12.9 Hypertensive chronic kidney disease with stage 1 through stage 4 chronic kidney disease, or unspecified chronic kidney disease; S00.03XA Contusion of scalp, initial encounter; F13.90 Sedative, hypnotic, or anxiolytic use, unspecified, uncomplicated; Y92.008 Other place in unspecified non-institutional (private) residence as the place of occurrence of the external cause; Z86.73 Personal history of transient ischemic attack (TIA), and cerebral infarction without residual deficits; Z79.02 Long term (current) use of antithrombotics/antiplatelets; Z79.84 Long term (current) use of oral hypoglycemic drugs; Z87.891 Personal history of nicotine dependence; Z79.899 Other long term (current) drug therapy; Z28.310 Unvaccinated for COVID-19; Z28.9 Immunization not carried out for unspecified reason; R53.81 Other malaise; Z66 Do not resuscitate
CPT/HCPCS: 51702; 70450; 71045; 71250; 72125; 72170; 74176; 80053; 81001; 82550; 82962; 83690; 84484; 85025; 85610; 85730; 87040; 87086; 93005; 99285; J7030; A4216; J2405